=== PATIENT | male | born 1945 | race Caucasian/White ===

== ENCOUNTER 2023-08-11 18:09 | Inpatient (IN) | payer MEDICARE, OTHER ==
[~2023-08-11] VITALS: Ht 177.8 cm; Wt 101.9 kg
[2023-08-11 18:23] VITALS: BP 125/88
[2023-08-11 19:18] LABS: BILIRUBIN Negative (Negative); BLOOD Negative (Negative); CLARITY Clear (Clear); COLOR Yellow (Yellow); GLUCOSE 3+ (Negative); KETONE Trace (Negative); LEUKO ESTERASE Negative (Negative); NITRITE Negative (Negative); PH 6.5 (4.5-8.0); SPECIFIC GRAVITY 1.025 (1.001-1.030)
[2023-08-11 19:23] LABS: URINE AMPHETAMINES Negative (1000ng/ml); URINE BARBITURATES Negative (200ng/ml); URINE BENZODIAZEPINES Negative (200ng/ml); URINE CANNABINOIDS (THC) Negative (50ng/ml); URINE COCAINE Negative (300ng/ml); URINE METHADONE Negative (300ng/ml); URINE OPIATES Negative (300ng/ml); URINE PHENCYCLIDINE Negative (25ng/ml)
[2023-08-11 19:27] LABS: BASO # 0.1 10*3/uL (0.0-0.1); BASO % 0.6 % (0.0-1.0); EOS # 0.1 10*3/uL (0.0-0.4); EOS % 0.9 % (1.0-4.0); HEMATOCRIT 47.5 % (42.0-52.0); LYMPH # 2.8 10*3/uL (1.3-4.4); LYMPH % 27.5 % (27.0-41.0); MEAN CELL VOLUME 87.8 fl (80.0-94.0); MEAN CORPUSCULAR HGB 28.5 pg (27.0-31.0); MEAN CORPUSCULAR HGB CONC 32.4 g/dl (33.0-37.0); MEAN PLATELET VOLUME 9.5 fl (9.6-12.3); MONO # 0.9 10*3/uL (0.1-1.0); MONO % 8.7 % (3.0-9.0); NEUT # 6.2 10*3/uL (2.3-7.9); NEUT % 61.9 % (47.0-73.0); PLATELET COUNT AUTOMATED 182 10*3/uL (130-400); RED BLOOD COUNT 5.41 10*6/uL (4.50-5.90); RED CELL DISTRI WIDTH 14.6 % (0-14.5)
[2023-08-11 19:41] LABS: RBC 0-2 rbc/hpf (0-2)
[2023-08-11 19:47] LABS: ALKALINE PHOSPHATASE 64 U/L (46-116); BUN 18 mg/dl (9-23); CHLORIDE 104 mmol/L (98-107); POTASSIUM 4.2 mmol/L (3.4-5.1); SGPT/ALT 23 U/L (5-49); TOTAL PROTEIN 6.5 gm/dL (6.0-8.0)
[2023-08-11 19:48] LABS: ETHYL ALCOHOL < 3.0 mg/dl (<3)
[2023-08-11 21:34] VITALS: BP 133/70
[2023-08-11] MEDS ORDERED: MG-AL HYDROXIDE/SIMETICONE 30 ML UDC PO PRN (22:05)
[2023-08-11] MEDS ORDERED: ACETAMINOPHEN 325 MG TAB PO PRN (22:05)
[2023-08-11] MEDS ORDERED: Magnesium Hydroxide 30 ML UDC PO PRN (22:05)
[2023-08-11] MEDS ORDERED: Menthol/Zinc Oxide 4 GM THIN T PRN (22:10)
[2023-08-11] MEDS ORDERED: LORazepam 1 MG TAB PO PRN (22:20)
[2023-08-11] MEDS ORDERED: AMLODIPINE BESY10 MG PO (22:24)
[2023-08-11] MEDS ORDERED: Water, Sterile 10 ML VIAL IM PRN (22:25)
[2023-08-11] MEDS ORDERED: LIPITOR40 MG PO (22:25)
[2023-08-11] MEDS ORDERED: ASPIRIN ADULT L81 M1 PO (22:25)
[2023-08-11] MEDS ORDERED: Ziprasidone Mesylate 20 MG VIAL IM PRN (22:25)
[2023-08-11] MEDS ORDERED: CARVEDILOL12.5 MG PO (22:26)
[2023-08-11] MEDS ORDERED: CELEXA20 MG PO (22:26)
[2023-08-11] MEDS ORDERED: DEPAKOTE SPRIN125 MG PO ×2 (22:28→22:30)
[2023-08-11] MEDS ORDERED: JARDIANCE25 MG PO (22:31)
[2023-08-11] MEDS ORDERED: FINASTERIDE5 M1 PO (22:31)
[2023-08-11] MEDS ORDERED: IMODIUM A-D2 M2 PO (22:32)
[2023-08-11] MEDS ORDERED: LOSARTAN POTAS100 M1 PO (22:32)
[2023-08-11] MEDS ORDERED: MELATONIN5 M6 PO (22:33)
[2023-08-11] MEDS ORDERED: METFORMIN HYD1000 MG PO (22:33)
[2023-08-11] MEDS ORDERED: NAMENDA-5 PO (22:34)
[2023-08-11] MEDS ORDERED: WEGOVY0.5 MG/0.5 SQ (22:35)
[2023-08-11] MEDS ORDERED: ALDACTONE25 M1 PO (22:35)
[2023-08-11] MEDS ORDERED: TAMSULOSIN HCL0.4 MG PO (22:36)
[2023-08-12 07:46] VITALS: BP 125/71
[2023-08-12 07:48] LABS: VITAMIN D, 25-HYDROXY 41.8 ng/mL (30-100)
[2023-08-12] MEDS ORDERED: CARVEDILOL 12.5 MG TAB PO SCH (09:00)
[2023-08-12] MEDS ORDERED: EMPAGLIFLOZIN 25 MG TABLET PO SCH (09:00)
[2023-08-12] MEDS ORDERED: Rivastigmine Tartrate 4.6 MG/24 HR PATCH T SCH (09:00)
[2023-08-12] MEDS ORDERED: Losartan Potassium 100 MG TABLET PO SCH (09:00)
[2023-08-12] MEDS ORDERED: SPIRONOLACTONE 25 MG TAB PO SCH (09:00)
[2023-08-12] MEDS ORDERED: Memantine Hydrochloride 5 MG TAB PO SCH (09:00)
[2023-08-12] MEDS ORDERED: FINASTERIDE 5 MG TAB PO SCH (09:00)
[2023-08-12] MEDS ORDERED: amLODIPine besylate 10 MG TAB PO SCH (09:00)
[2023-08-12] MEDS ORDERED: medroxyPROGESTERone acetate 10 MG TAB PO SCH ×2 (09:00→21:00)
[2023-08-12] MEDS ORDERED: ASPIRIN, CHEWABLE 81 MG TAB PO SCH (09:00)
[2023-08-12] MEDS ORDERED: DIVALPROEX SODIUM 125 MG CAP PO SCH (09:00)
[2023-08-12] MEDS ORDERED: CIMETIDINE 200 MG TAB PO SCH (09:00)
[2023-08-12] MEDS ORDERED: DEXTROSE 10 % IN WATER 250 ML IV PRN (13:10)
[2023-08-12] MEDS ORDERED: INSULIN LISPRO 1 UNIT/0.01 ML SQ SCH (16:30)
[2023-08-12 20:00] VITALS: BP 144/77
[2023-08-12] MEDS ORDERED: Tamsulosin Hydrochloride 0.4 MG CAP PO SCH (21:00)
[2023-08-12] MEDS ORDERED: ATORVASTATIN CALCIUM 40 MG TABLET PO SCH (21:00)
[2023-08-12] MEDS ORDERED: Memantine Hydrochloride 10 MG TAB PO SCH (21:00)
[2023-08-12] MEDS ORDERED: Mirtazapine 15 MG TAB PO SCH (21:00)
[2023-08-13 08:00] VITALS: BP 100/68; BP 112/66
[2023-08-13] MEDS ORDERED: Rivastigmine Tartrate 9.5 MG/24 HR PATCH T SCH (09:00)
[2023-08-13 20:00] VITALS: BP 106/53
[2023-08-13] MEDS ORDERED: CEFDINIR 300 MG CAP PO SCH (21:00)
[2023-08-14 08:00] VITALS: BP 119/77
[2023-08-14] MEDS ORDERED: Memantine Hydrochloride 10 MG TAB PO SCH (09:00)
[2023-08-14 20:00] VITALS: BP 107/56
[2023-08-15 08:00] VITALS: BP 107/67
[2023-08-15] MEDS ORDERED: RISPERIDONE 0.5 MG TAB PO SCH (09:00)
[2023-08-15] MEDS ORDERED: RIVASTIGMINE 13.3 MG/24 HR TDM T SCH (09:00)
[2023-08-15 20:00] VITALS: BP 121/61
[2023-08-16 06:56] LABS: BASO # 0.1 10*3/uL (0.0-0.1); BASO % 0.9 % (0.0-1.0); EOS # 0.1 10*3/uL (0.0-0.4); EOS % 1.4 % (1.0-4.0); HEMATOCRIT 48.5 % (42.0-52.0); LYMPH % 30.2 % (27.0-41.0); MEAN CELL VOLUME 88.5 fl (80.0-94.0); MEAN CORPUSCULAR HGB 28.5 pg (27.0-31.0); MEAN CORPUSCULAR HGB CONC 32.2 g/dl (33.0-37.0); MEAN PLATELET VOLUME 9.7 fl (9.6-12.3); MONO # 0.9 10*3/uL (0.1-1.0); MONO % 9.3 % (3.0-9.0); NEUT # 5.7 10*3/uL (2.3-7.9); NEUT % 57.8 % (47.0-73.0); PLATELET COUNT AUTOMATED 181 10*3/uL (130-400); RED BLOOD COUNT 5.48 10*6/uL (4.50-5.90); RED CELL DISTRI WIDTH 14.8 % (0-14.5); WHITE BLOOD COUNT 9.9 10*3/uL (4.8-10.8)
[2023-08-16 07:23] LABS: POTASSIUM 4.6 mmol/L (3.4-5.1); TOTAL PROTEIN 6.3 gm/dL (6.0-8.0); VALPROIC ACID (DEPAKENE) 59.6 ug/ml (50-100)
[2023-08-16 08:00] VITALS: BP 105/73
[2023-08-16 20:00] VITALS: BP 110/69
[2023-08-16] MEDS ORDERED: DIVALPROEX (DR) 500 MG TAB PO SCH (21:00)
[2023-08-17 07:48] VITALS: BP 113/76
[2023-08-17] MEDS ORDERED: SODIUM CHLORIDE 0.9% 1,000 ML IV ONE (12:30)
[2023-08-17 20:00] VITALS: BP 127/80
[2023-08-18 06:44] LABS: BUN 18 mg/dl (9-23); CHLORIDE 113 mmol/L (98-107); POTASSIUM 4.4 mmol/L (3.4-5.1)
[2023-08-18 08:00] VITALS: BP 113/57
[2023-08-18 20:00] VITALS: BP 116/62
[2023-08-19 08:00] VITALS: BP 131/55
[2023-08-19] MEDS ORDERED: LORazepam 1 MG TAB PO PRN (18:35)
[2023-08-19 20:00] VITALS: BP 123/54
[2023-08-20 08:00] VITALS: BP 116/85
[2023-08-20] MEDS ORDERED: DIVALPROEX (DR) 500 MG TAB PO SCH (13:00)
[2023-08-20 20:00] VITALS: BP 117/49
[2023-08-20] MEDS ORDERED: CIMETIDINE 200 MG TAB PO SCH (21:00)
[2023-08-20] MEDS ORDERED: medroxyPROGESTERone acetate 10 MG TAB PO SCH (21:00)
[2023-08-21 20:00] VITALS: BP 142/71
[2023-08-22 07:51] VITALS: BP 125/88
[2023-08-22 20:00] VITALS: BP 139/77
[2023-08-23 08:00] VITALS: BP 123/70; BP 130/77
[2023-08-23 20:00] VITALS: BP 118/63
[2023-08-24 07:56] VITALS: BP 115/67
[2023-08-24 20:00] VITALS: BP 117/75
[2023-08-25 08:34] VITALS: BP 117/51
[2023-08-25 08:45] LABS: BASO # 0.1 10*3/uL (0.0-0.1); BASO % 0.9 % (0.0-1.0); EOS # 0.1 10*3/uL (0.0-0.4); HEMATOCRIT 49.5 % (42.0-52.0); LYMPH # 3.3 10*3/uL (1.3-4.4); LYMPH % 35.7 % (27.0-41.0); MEAN CORPUSCULAR HGB 27.9 pg (27.0-31.0); MEAN CORPUSCULAR HGB CONC 32.1 g/dl (33.0-37.0); MEAN PLATELET VOLUME 9.9 fl (9.6-12.3); MONO # 0.7 10*3/uL (0.1-1.0); NEUT % 54.1 % (47.0-73.0); PLATELET COUNT AUTOMATED 206 10*3/uL (130-400); RED BLOOD COUNT 5.69 10*6/uL (4.50-5.90); RED CELL DISTRI WIDTH 14.7 % (0-14.5); WHITE BLOOD COUNT 9.3 10*3/uL (4.8-10.8)
[2023-08-25 09:06] LABS: POTASSIUM 4.2 mmol/L (3.4-5.1); TOTAL PROTEIN 6.5 gm/dL (6.0-8.0)
[2023-08-25 20:00] VITALS: BP 126/58
[2023-08-26 07:18] VITALS: BP 118/55
[2023-08-26] MEDS ORDERED: RIVASTIGMINE1 EAC2 T (07:59)
[2023-08-26] MEDS ORDERED: MEDROXYPROGESTE10 M1 PO (07:59)
[2023-08-26] MEDS ORDERED: CIMETIDINE200 MG PO (07:59)
[2023-08-26] MEDS ORDERED: DIVALPROEX SOD500 MG PO (07:59)
[2023-08-26] MEDS ORDERED: MEMANTINE HCL10 MG PO (07:59)
[2023-08-26] MEDS ORDERED: MIRTAZAPINE15 M2 PO (07:59)
== END 2023-08-26 14:24 | DRG 57 ==
LOC: ED 18:09 → 3N 21:02
PROVIDERS: Nurse Practitioner; Physician Assistant; Registered Nurse; ADMIT Psychiatry & Neurology Psychiatry; ATTEND Psychiatry & Neurology Psychiatry
DX: G30.9 Alzheimer's disease, unspecified (principal); F02.80 Dementia in other diseases classified elsewhere, unspecified severity, without behavioral disturbance, psychotic disturbance, mood disturbance, and anxiety; N17.9 Acute kidney failure, unspecified; F23 Brief psychotic disorder; N39.0 Urinary tract infection, site not specified; F63.9 Impulse disorder, unspecified; F39 Unspecified mood [affective] disorder; I10 Essential (primary) hypertension; E11.9 Type 2 diabetes mellitus without complications; I25.10 Atherosclerotic heart disease of native coronary artery without angina pectoris; Z66 Do not resuscitate; N40.0 Benign prostatic hyperplasia without lower urinary tract symptoms; L30.8 Other specified dermatitis; F32.9 Major depressive disorder, single episode, unspecified